=== PATIENT | female | born 1985 | race Caucasian/White ===

== ENCOUNTER → 2017-04-07 | Outpatient (CLI) | payer OTHER, MEDICARE ==
[~2017-04-07] MED LIST: CIMZ200K SC; CIMZ200K SQ; CYCL-36 PO; DIPH50TA PO; LANTUS2P SC; LEVEMIR SQ; LEVIMIR SQ; LORTA5 PO; METH250T PO; NOVALOG SQ; NOVOLOGP2 SQ; PRENATAL VITAMIN; VICT18IN
== END ==
LOC: HPND 08:55
PROVIDERS: ATTEND Obstetrics & Gynecology
DX: O99.612 Diseases of the digestive system complicating pregnancy, second trimester (principal); O24.414 Gestational diabetes mellitus in pregnancy, insulin controlled; O10.912 Unspecified pre-existing hypertension complicating pregnancy, second trimester; Z3A.00 Weeks of gestation of pregnancy not specified
CPT/HCPCS: 76811; 76817

== ENCOUNTER → 2017-05-12 | Outpatient (CLI) | payer OTHER, MEDICARE | LOC: HPND 08:58 | PROVIDERS: ATTEND Obstetrics & Gynecology | DX: O99.212 Obesity complicating pregnancy, second trimester (principal); Z68.38 Body mass index [BMI] 38.0-38.9, adult; O10.212 Pre-existing hypertensive chronic kidney disease complicating pregnancy, second trimester; O35.2XX0 Maternal care for (suspected) hereditary disease in fetus, not applicable or unspecified; O44.02 Complete placenta previa NOS or without hemorrhage, second trimester; O24.112 Pre-existing type 2 diabetes mellitus, in pregnancy, second trimester | CPT/HCPCS: 76816; 76825; 76827; 93325 ==

== ENCOUNTER 2017-05-17 17:01 | Emergency (ER) | payer OTHER, MEDICARE ==
[~2017-05-17] VITALS: Ht 160 cm; Wt 105.0 kg
[~2017-05-17 17:01] MED LIST changes: -CIMZ200K SQ; -LEVEMIR SQ; -LEVIMIR SQ; -METH250T PO; -NOVALOG SQ; -NOVOLOGP2 SQ; -PRENATAL VITAMIN
[2017-05-17 17:10] VITALS: BP 164/91; PULSE 110; RESP 16; TEMP 98.3; O2SAT 99
--- NOTE | 2017-05-17 17:47 | PD ---
HPI Chief Complaint: Injury Time Seen by Provider: 17:46 Travel History International Travel<30 days: No Contact w/Intl Traveler<30days: No Traveled to known affect area: No History of Present Illness HPI 32 year old female who is 24 weeks gestation presents to the ED for evaluation of right knee pain. Pt got up last night to vomit and while running to the bathroom ended up vomiting on the floor and slipped in it. She landed on her right knee and experienced immediate pain. She took tylenol initially. This did not help her pain. She took a tramadol that she is prescribed for arthritic pain and it took the edge off, but did not resolve her pain. Pain is on the anterior right knee; 8/10; does not radiate anywhere. Pain is exacerbated with ambulation, flexion, and palpation. Denies alterations in sensation; no other symptoms to report. Pt did not hit her abdomen. Denies any abdominal pain. No cramping. No vaginal discharge or bleeding. No complaints. PFSH Past Medical History Anxiety: Yes Diabetes: Yes (TYPE II) Gastrointestinal Disorders: Yes (crohns ) Hepatitis: No Hiatal Hernia: No Thyroid Disease: No ?: LMP: 24 WKS Past Surgical History Abdominal Surgery: Yes (bowel resection) Appendectomy: Yes Cholecystectomy: Yes Genitourinary Surgery: Yes (fistula repair x 4 ) Pacemaker: No Social History Alcohol Use: No Tobacco Use: No Substance Use: No Allergies-Medications (Allergen,Severity, Reaction): Coded Allergies: Sulfa (Sulfonamide Antibiotics) (Unverified Allergy, Severe, hives and shortness of breath, 05/17/17) mushroom (Unverified Allergy, Mild, gi upset, 05/17/17) diclofenac (Unverified Adverse Reaction, Mild, unknwon, 05/17/17) pt instructed not to take due to crohns. etodolac (Unverified Adverse Reaction, Mild, unknwon, 05/17/17) pt instructed not to take due to crohns. flurbiprofen (Unverified Adverse Reaction, Mild, unknwon, 05/17/17) pt instructed not to take due to crohns. ibuprofen (Unverified Adverse Reaction, Mild, unknwon, 05/17/17) pt instructed not to take due to crohns. indomethacin (Unverified Adverse Reaction, Mild, unknwon, 05/17/17) pt instructed not to take due to crohns. ketoprofen (Unverified Adverse Reaction, Mild, unknwon, 05/17/17) pt instructed not to take due to crohns. ketorolac (Unverified Adverse Reaction, Mild, unknwon, 05/17/17) pt instructed not to take due to crohns. naproxen (Unverified Adverse Reaction, Mild, unknwon, 05/17/17) pt instructed not to take due to crohns. oxaprozin (Unverified Adverse Reaction, Mild, unknwon, 05/17/17) pt instructed not to take due to crohns. Reported Meds & Prescriptions Reported Meds & Active Scripts Active Reported Methyldopa 250 Mg Tab 250 Mg PO TID [ Vitamin] [Novalog] 32 SQ DINNER [Novalog] 30 SQ 1200 [Novalog] 25 SQ AM [Levimir] 75 SQ QID Cimzia (2 syringe) Kit Inj (Certolizumab Pegol Inj) 400 Mg/2 Ml (200 Mg/Ml X 2) Kit 400 Mg SQ Q14D Administer 2 syringes (400 mg) to separate sites. Review of Systems Except as stated in HPI: all other systems reviewed are Neg Physical Exam Narrative GENERAL: Well nourished female patient ambulatory with an antalgic gait, in no acute distress SKIN: Warm and dry. Light ecchymosis on the anterior aspect of the right knee HEAD: Normocephalic. EYES: No scleral icterus. No injection or drainage. NECK: Supple, trachea midline. No JVD or lymphadenopathy. CARDIOVASCULAR: Regular rate and rhythm without murmurs, gallops, or rubs. RESPIRATORY: Breath sounds equal bilaterally. No accessory muscle use. GASTROINTESTINAL: Abdomen soft, non-tender, nondistended. MUSCULOSKELETAL: No cyanosis. Moderate anterior right knee swelling with associated light ecchymosis. Pt can fully flex and extend the affected knee. No laxity with valgus or varus stress. BACK: Nontender without obvious deformity. No CVA tenderness. Data Data Last Documented VS Vital Signs Date Time Temp Pulse Resp B/P (MAP) Pulse Ox O2 Delivery O2 Flow Rate FiO2 05/17/17 17:10 98.3 110 16 164/91 (115) 99 Orders Orders Knee, Complete (4vws) (05/17/17 ) Ice / Cold Pack PRN (05/17/17 18:01) Acetamin-Hydrocod 325-5 Mg ([place] 5-325 (05/17/17 18:15) Mike Bandage (05/17/17 18:19) MDM Medical Decision Making Medical Screen Exam Complete: Yes Emergency Medical Condition: Yes Medical Record Reviewed: Yes Differential Diagnosis contusion vs fracture vs sprain vs dislocation Narrative Course 32 year old female presents to the ED for evaluation of right knee pain. Pt does have moderate swelling on the anterior right knee with light ecchymosis. Pt is and reports pretty significant pain. She is given one lortab. Last Impressions Knee X-Ray 05/17/17 0000 Signed Impressions: Service Date/Time: Wednesday, May 17, 2017 17:48 - CONCLUSION: 1. Negative examination of the knee. Logan Santiago MD Results are discussed with the pt. Pt is counseled on care. Agrees to follow up with primary care provider. She agrees to return immediately with acute worsening of symptoms Diagnosis Primary Impression: Contusion of right knee Qualified Codes: S80.01XA - Contusion of right knee, initial encounter Referrals: Orthopaedic Surgeon Primary Care Physician Patient Instructions: Contusion in Adults (ED), General Instructions Additional Instructions: Ice and elevate to reduce pain and swelling Mike bandage for compression Follow up with your primary care provider Seek orthopedic evaluation Return immediately with any acute worsening of symptoms Med/Other Pt SpecificInfo: No Change to Meds Disposition: 01 DISCHARGE HOME Condition: Stable Cinthia Staples May 17, 2017 17:47
[2017-05-17] MEDS ORDERED: METH250T PO (17:55)
[2017-05-17] MEDS ORDERED: NOVALOG SQ ×3 (17:55)
[2017-05-17] MEDS ORDERED: LEVIMIR SQ (17:55)
[2017-05-17] MEDS ORDERED: PRENATAL VITAMIN (17:55)
[2017-05-17] MEDS ORDERED: CIMZ200K SQ (17:55)
[2017-05-17] MEDS ORDERED: ACETAMINOPHEN/HYDROcodone 325 MG/5 MG TAB PO ONE (18:15)
--- NOTE | 2017-05-17 18:16 | RADRPT ---
EXAM DATE/TIME: 05/17/2017 17:48 [facility] COMPARISON: No previous studies available for comparison. INDICATIONS : Right knee pain. MEDICAL HISTORY : None. SURGICAL HISTORY : None. ENCOUNTER: Initial ACUITY: 2 days PAIN SCORE: 6/10 LOCATION: Right knee. FINDINGS: Four view examination of the right knee demonstrates no evidence of fracture or dislocation. Bony mi neralization is normal. The articular surfaces are intact. The suprapatellar soft tissues have a no rmal configuration. CONCLUSION: 1. Negative examination of the knee. Logan Santiago MD on May 17, 2017 at 18:15 Board Certified Radiologist. This report was verified electronically.
[2017-05-18] MEDS ORDERED: LEVEMIR SQ (11:09)
[2017-05-18] MEDS ORDERED: NOVOLOGP2 SQ ×3 (11:09)
== END 2017-05-17 18:42 | disposition home or self-care (01) ==
LOC: PHED 17:01 → PHEFT 18:42
DX: O26.92 Pregnancy related conditions, unspecified, second trimester (principal); S80.01XA Contusion of right knee, initial encounter; O24.112 Pre-existing type 2 diabetes mellitus, in pregnancy, second trimester; E11.9 Type 2 diabetes mellitus without complications; Z79.4 Long term (current) use of insulin; Z3A.24 24 weeks gestation of pregnancy; W01.0XXA Fall on same level from slipping, tripping and stumbling without subsequent striking against object, initial encounter
CPT/HCPCS: 73564; 99283; E0113

== ENCOUNTER → 2017-06-09 | Outpatient (CLI) | payer OTHER, MEDICARE ==
[~2017-06-09] MED LIST changes: -CIMZ200K SC; +CIMZ200K SQ; -CYCL-36 PO; -DIPH50TA PO; -LANTUS2P SC; +LEVEMIR SQ; -LORTA5 PO; +METH250T PO; +NOVOLOGP2 SQ; +PRENATAL VITAMIN; -VICT18IN
== END ==
LOC: HPND 10:33
PROVIDERS: ATTEND Obstetrics & Gynecology
DX: O99.612 Diseases of the digestive system complicating pregnancy, second trimester (principal); K50.80 Crohn's disease of both small and large intestine without complications; O10.012 Pre-existing essential hypertension complicating pregnancy, second trimester; O24.112 Pre-existing type 2 diabetes mellitus, in pregnancy, second trimester; E66.09 Other obesity due to excess calories; O99.212 Obesity complicating pregnancy, second trimester; Z68.38 Body mass index [BMI] 38.0-38.9, adult
CPT/HCPCS: 76816

== ENCOUNTER 2017-06-17 18:25 | Emergency (ER) | payer OTHER, MEDICARE ==
--- NOTE | 2017-06-17 19:58 | PD ---
HPI Chief Complaint Elevated blood pressure in a patient with chronic hypertension Date Seen: Jun 17, 2017 Time Seen: 19:30 Travel History International Travel<30 Days: No Contact w/Intl Traveler<30Days: No Known Affected Area: No History of Present Illness HPI Patient is 32-year-old white female at [address] Salas for care and presents complaining of elevated blood pressures today and initial blood pressures when she was here was 160/88. Patient has chronic hypertension been on antihypertensives as before she was . The however in the last couple days she has not taken her Aldomet her only medication for blood pressure and just today The prescription filled and is taken 2 doses today. Weeks Gestation: 29 Para: 0 : 2 Miscarriage: 1 History Past Medical History Narrative Medical Chronic hypertension requiring medication[aldomet 500mg bid] IDDM on insulin now Obstetric History Obstetric History 1 early loss Social History Alcohol Use: No Tobacco Use: No Substance Abuse: No Allergies-Medications (Allergen,Severity, Reaction): Coded Allergies: Sulfa (Sulfonamide Antibiotics) (Unverified Allergy, Severe, hives and shortness of breath, 05/17/17) mushroom (Unverified Allergy, Mild, gi upset, 05/17/17) diclofenac (Unverified Adverse Reaction, Mild, unknwon, 05/17/17) pt instructed not to take due to crohns. etodolac (Unverified Adverse Reaction, Mild, unknwon, 05/17/17) pt instructed not to take due to crohns. flurbiprofen (Unverified Adverse Reaction, Mild, unknwon, 05/17/17) pt instructed not to take due to crohns. ibuprofen (Unverified Adverse Reaction, Mild, unknwon, 05/17/17) pt instructed not to take due to crohns. indomethacin (Unverified Adverse Reaction, Mild, unknwon, 05/17/17) pt instructed not to take due to crohns. ketoprofen (Unverified Adverse Reaction, Mild, unknwon, 05/17/17) pt instructed not to take due to crohns. ketorolac (Unverified Adverse Reaction, Mild, unknwon, 05/17/17) pt instructed not to take due to crohns. naproxen (Unverified Adverse Reaction, Mild, unknwon, 05/17/17) pt instructed not to take due to crohns. oxaprozin (Unverified Adverse Reaction, Mild, unknwon, 05/17/17) pt instructed not to take due to crohns. Home Meds Reported Medications Insulin Aspart Inj (Novolog Inj) 1,000 Unit/10 Ml Vial, 32 UNITS SQ DAILY WITH DINNER for Blood Sugar Management, #1 INJECTION 0 Refills 05/18/17 Insulin Aspart Inj (Novolog Inj) 1,000 Unit/10 Ml Vial, 30 UNITS SQ DAILY AT 12NOON for Blood Sugar Management, #1 INJECTION 0 Refills 05/18/17 Insulin Aspart Inj (Novolog Inj) 1,000 Unit/10 Ml Vial, 25 UNITS SQ DAILY IN THE AM for Blood Sugar Management, #1 INJECTION 0 Refills 05/18/17 Insulin Detemir Inj (Levemir Inj) 1,000 unit/ 10 ML Vial, 75 UNITS SQ QID for Blood Sugar Management, VIAL 0 Refills Do not mix with any other Insulin. 05/18/17 Methyldopa (Methyldopa) 250 Mg Tab, 250 MG PO TID for Blood Pressure Management , TAB 0 Refills 05/17/17 [ Vitamin] No Conflict Check 05/17/17 Certolizumab Pegol Inj (Cimzia (2 syringe) Kit Inj) 400 Mg/2 Ml (200 Mg/Ml X 2) Kit, 400 MG SQ Q14D, KIT Administer 2 syringes (400 mg) to separate sites. 05/17/17 Review of Systems General / Constitutional: No: Fever, Weight Gain, Chills, Other Eyes: No: Diploplia, Blurred Vision, Visual changes, Pain, Photophobia HENT: No: Headaches, Vertigo, Lightheadedness Cardiovascular: No: Irregular Rhythm, Chest Pain or Discomfort, Palpitations, Tachycardia, Syncope, Varicosities, Edema, Cyanosis Respiratory: No: Cough, Short of Breath, Other Gastrointestinal: Abdominal Pain, No: Nausea, Vomiting, Diarrhea Genitourinary: No: Decreased Urinary Output, Oliguria Musculoskeletal: No: Limited ROM, Weakness, Cramping, Edema, Pain Skin: No Rash, No Itching, No Dryness, No Lumps, No Change in Pigmentation, No Change in Nails, No Alopecia, No Lesions Neurologic: No: Weakness, Dizziness, Syncope, Focal Abnormalities, Coordination Problem, Headache, Slurred Speech, Seizures Psychiatric: No: Depression, Suicidal Ideations, Homicidal Ideation Endocrine: No: Heat Intolerance, Cold Intolerance, Polydipsia, Polyuria, Other Physical Exam Narrative GENERAL: Well-nourished, well-developed patient. SKIN: Warm and dry. HEAD: Normocephalic and atraumatic. EYES: No scleral icterus. No injection or drainage. ENT: No nasal drainage noted. Mucous membranes pink. Airway patent. NECK: Supple, trachea midline. No JVD. CARDIOVASCULAR: Regular rate and rhythm without murmurs, gallops, or rubs. RESPIRATORY: Breath sounds equal bilaterally. No accessory muscle use. BREASTS: Bilateral exam showed no masses , no retractions, no nipple discharge. ABDOMEN/GI: Abdomen soft, non-tender, bowel sounds present, no rebound, no guarding Gravid to [-29] weeks size Fundal Height: [29-] GENITOURINARY: External Genitalia: intact and normal in appearance BUS glands: [-] Cervix: [post-] Dilatation: [-0] Effacement: [0-] Station: [-3] Membranes: [intact ] Uterine Contractions: [none-] FHT's: Category: [1-] Baseline: [-133] Reactive: [-yes] Variability: [mod-] Decels: [-0] EXTREMITIES: No cyanosis or edema. BACK: Nontender without obvious deformity. No CVA tenderness. NEUROLOGICAL: Awake and alert. Motor and sensory grossly within normal limits. Five out of 5 muscle strength in all muscle groups. Normal speech. Data Data Orders Orders Cbc No Diff, Includes Plts (06/17/17 18:59) Comprehensive Metabolic Panel (06/17/17 18:59) Uric Acid (06/17/17 18:59) Urinalysis - C+S If Indicated (06/17/17 18:59) MDM Interpretation(s) Patient is 32-year-old white female at 29 weeks who is history chronic hypertension on Aldomet now 500 twice a day also history of insulin dependent diabetes and takes appearance on a regular basis. She presents baby because of elevated blood pressures [facility] the 160/88 Range Here on OB ED. Blood Pressures BEEN Lying down, Were in the 140 / 70s, [facility] lab WNL , K+ low --2.7 will replace with 20 meq K tab po bid Plan The patient to continue taking her oral antihypertensives, potassium is low will provide potassium tablet 20 meq twice a day along with vitamin Diagnosis Diagnosis: Primary Impression: Chronic hypertension during , antepartum Additional Impressions: Diabetes in Hypokalemia Disposition: 01 DISCHARGE HOME Condition: Stable Scripts Potassium Chloride ER (K-Tab) 20 Meq Tab 20 MEQ PO BID for Electrolyte Replacement, #60 TAB 0 Refills Prov: Dangelo Johnston II, MD 06/17/17 Dangelo Johnston II, MD Jun 17, 2017 19:58
[2017-06-17 20:18] LABS: HEMATOCRIT 29.2 % (35.0-46.0); MEAN CORPUSCULAR HEMOGLOBIN 28.1 PG (27.0-34.0); MEAN CORPUSCULAR HGB CONC 33.5 % (32.0-36.0); PLATELET COUNT 240 TH/MM3 (150-450); RED BLOOD COUNT 3.48 MIL/MM3 (4.00-5.30); RED CELL DISTRIBUTION WIDTH 14.4 % (11.6-17.2); REVIEW FLAG FINAL; WHITE BLOOD COUNT 7.4 TH/MM3 (4.0-11.0)
[2017-06-17 21:07] LABS: ALKALINE PHOSPHATASE 57 U/L (45-117); ALT (GPT) 15 U/L (10-53); ANION GAP 10 MEQ/L (5-15); AST (GOT) 10 U/L (15-37); BICARBONATE 24.1 MEQ/L (21.0-32.0); BLOOD UREA NITROGEN 4 MG/DL (7-18); CHLORIDE 103 MEQ/L (98-107); GLOMERULAR FILTRATION RATE 131 ML/MIN (>89); SODIUM (NA) 137 MEQ/L (136-145); TOTAL BILIRUBIN ADULT 0.3 MG/DL (0.2-1.0); URIC ACID 4.1 MG/DL (2.6-6.0)
[2017-06-17 21:09] LABS: POTASSIUM 2.7 MEQ/L (3.5-5.1)
[2017-06-17] MEDS ORDERED: POTA1TAB4 PO (21:30)
== END 2017-06-17 21:45 | disposition home or self-care (01) ==
LOC: HOBED 18:25
DX: O16.3 Unspecified maternal hypertension, third trimester (principal); O24.913 Unspecified diabetes mellitus in pregnancy, third trimester; E87.6 Hypokalemia; Z79.4 Long term (current) use of insulin; Z79.899 Other long term (current) drug therapy; Z88.2 Allergy status to sulfonamides; Z88.6 Allergy status to analgesic agent; Z3A.29 29 weeks gestation of pregnancy; Z88.8 Allergy status to other drugs, medicaments and biological substances
CPT/HCPCS: 80053; 84550; 85027; 99284

== ENCOUNTER 2017-07-29 09:34 | Emergency (ER) | payer OTHER, MEDICARE ==
[~2017-07-29 09:34] MED LIST changes: +POTA1TAB4 PO
--- NOTE | 2017-07-29 11:17 | PD ---
HPI Chief Complaint High blood pressure Date Seen: Jul 29, 2017 Time Seen: 11:11 Travel History International Travel<30 Days: No Contact w/Intl Traveler<30Days: No Known Affected Area: No History of Present Illness HPI Patient is 32-year-old white female at [address] Salas for care and was seen today in OB diagnostics for biophysical profile which was 8 of 8 with the NST being reactive now 10 of 10, however blood pressure in the back was 180/90 and 170/88, respirations on Aldomet 2 g a day and has just started on Procardia 30 mg XL her OB doctor. Because was blood pressure she was sent OB ED for lab work and evaluation. heart rate tracing is reactive and no contractions. Patient is a symptomatically otherwise she has no headache blurry vision spots in front of her eyes abdominal pain or swelling Weeks Gestation: 35 Para: 0 : 2 History Past Medical History Narrative Medical Chronic hypertension Obstetric History Obstetric History 1 early loss Social History Alcohol Use: No Tobacco Use: No Substance Abuse: No Allergies-Medications (Allergen,Severity, Reaction): Coded Allergies: Sulfa (Sulfonamide Antibiotics) (Unverified Allergy, Severe, hives and shortness of breath, 05/17/17) mushroom (Unverified Allergy, Mild, gi upset, 05/17/17) diclofenac (Unverified Adverse Reaction, Mild, unknwon, 05/17/17) pt instructed not to take due to crohns. etodolac (Unverified Adverse Reaction, Mild, unknwon, 05/17/17) pt instructed not to take due to crohns. flurbiprofen (Unverified Adverse Reaction, Mild, unknwon, 05/17/17) pt instructed not to take due to crohns. ibuprofen (Unverified Adverse Reaction, Mild, unknwon, 05/17/17) pt instructed not to take due to crohns. indomethacin (Unverified Adverse Reaction, Mild, unknwon, 05/17/17) pt instructed not to take due to crohns. ketoprofen (Unverified Adverse Reaction, Mild, unknwon, 05/17/17) pt instructed not to take due to crohns. ketorolac (Unverified Adverse Reaction, Mild, unknwon, 05/17/17) pt instructed not to take due to crohns. naproxen (Unverified Adverse Reaction, Mild, unknwon, 05/17/17) pt instructed not to take due to crohns. oxaprozin (Unverified Adverse Reaction, Mild, unknwon, 05/17/17) pt instructed not to take due to crohns. Home Meds Active Scripts Potassium Chloride ER (K-Tab) 20 Meq Tab, 20 MEQ PO BID for Electrolyte Replacement, #60 TAB 0 Refills Prov:Dangelo Johnston II, MD 06/17/17 Reported Medications Insulin Aspart Inj (Novolog Inj) 1,000 Unit/10 Ml Vial, 32 UNITS SQ DAILY WITH DINNER for Blood Sugar Management, #1 INJECTION 0 Refills 05/18/17 Insulin Aspart Inj (Novolog Inj) 1,000 Unit/10 Ml Vial, 30 UNITS SQ DAILY AT 12NOON for Blood Sugar Management, #1 INJECTION 0 Refills 05/18/17 Insulin Aspart Inj (Novolog Inj) 1,000 Unit/10 Ml Vial, 25 UNITS SQ DAILY IN THE AM for Blood Sugar Management, #1 INJECTION 0 Refills 05/18/17 Insulin Detemir Inj (Levemir Inj) 1,000 unit/ 10 ML Vial, 75 UNITS SQ QID for Blood Sugar Management, VIAL 0 Refills Do not mix with any other Insulin. 05/18/17 Methyldopa (Methyldopa) 250 Mg Tab, 250 MG PO TID for Blood Pressure Management , TAB 0 Refills 05/17/17 [ Vitamin] No Conflict Check 05/17/17 Certolizumab Pegol Inj (Cimzia (2 syringe) Kit Inj) 400 Mg/2 Ml (200 Mg/Ml X 2) Kit, 400 MG SQ Q14D, KIT Administer 2 syringes (400 mg) to separate sites. 05/17/17 Review of Systems General / Constitutional: No: Fever, Weight Gain, Chills, Other Eyes: No: Diploplia, Blurred Vision, Visual changes, Pain, Photophobia HENT: No: Headaches, Vertigo, Lightheadedness Cardiovascular: No: Irregular Rhythm, Chest Pain or Discomfort, Palpitations, Tachycardia, Syncope, Varicosities, Edema, Cyanosis Respiratory: No: Cough, Short of Breath, Other Gastrointestinal: No: Nausea, Vomiting, Diarrhea Genitourinary: No: Decreased Urinary Output, Oliguria Musculoskeletal: No: Limited ROM, Weakness, Cramping, Edema, Pain Skin: No Rash, No Itching, No Dryness, No Lumps, No Change in Pigmentation, No Change in Nails, No Alopecia, No Lesions Neurologic: No: Weakness, Dizziness, Syncope, Focal Abnormalities, Coordination Problem, Headache, Slurred Speech, Seizures Psychiatric: No: Depression, Suicidal Ideations, Homicidal Ideation Endocrine: No: Heat Intolerance, Cold Intolerance, Polydipsia, Polyuria, Other Physical Exam Narrative GENERAL: Well-nourished, well-developed patient. SKIN: Warm and dry. HEAD: Normocephalic and atraumatic. EYES: No scleral icterus. No injection or drainage. ENT: No nasal drainage noted. Mucous membranes pink. Airway patent. NECK: Supple, trachea midline. No JVD. CARDIOVASCULAR: Regular rate and rhythm without murmurs, gallops, or rubs. RESPIRATORY: Breath sounds equal bilaterally. No accessory muscle use. BREASTS: Bilateral exam showed no masses , no retractions, no nipple discharge. ABDOMEN/GI: Abdomen soft, non-tender, bowel sounds present, no rebound, no guarding Gravid to [-35] weeks size Fundal Height: [35-] GENITOURINARY: Membranes: [intact ] Uterine Contractions: [none-] FHT's: Category: [1-] Baseline: [-133] Reactive: [-yes] Variability: [-mod] Decels: [-0] EXTREMITIES: No cyanosis or edema. BACK: Nontender without obvious deformity. No CVA tenderness. NEUROLOGICAL: Awake and alert. Motor and sensory grossly within normal limits. Five out of 5 muscle strength in all muscle groups. Normal speech. Data Data Orders Orders Cbc No Diff, Includes Plts (07/29/17 10:11) Comprehensive Metabolic Panel (07/29/17 10:11) Uric Acid (07/29/17 10:11) Urinalysis - C+S If Indicated (07/29/17 10:11) Labs Biophysical profile done in OB diagnostics was 8 of 8 on ultrasound with the added reactive NST now 10 of 10 [facility] lab WNL , UA trace protein MDM Interpretation(s) Patient is 32-year-old white female at 35 weeks who presents referred from OB diagnostics for elevated blood pressures. They out of 180/90 and 170/ 90 and she was sent OB diagnostics. Blood pressures here been are more normal [id number] 80s 155/90 and 161/99 , [facility] lab within normal limits UA trace protein Plan D/C home to bedrest as much as possible Diagnosis Diagnosis: Primary Impression: Hypertension affecting in third trimester Additional Impression: 35 weeks gestation of Disposition: 01 DISCHARGE HOME Condition: Stable Dangelo Johnston II, MD Jul 29, 2017 11:17
[2017-07-29 11:47] LABS: BILIRUBIN, URINE NEG (NEG); BLOOD, URINE NEG (NEG); GLUCOSE,URINE NEG (NEG); HYALINE CAST, URINE 1 /lpf (RARE); KETONE, URINE NEG (NEG); MUCUS URINE FEW /lpf (OCC); NITRITE,URINE NEG (NEG); PH, URINE 5.5 (5.0-8.5); SQUAMOUS EPITHELIAL CELL URINE 11 /hpf (0-5); TRANSITIONAL EPI CELLS, URINE 1 /hpf; URINE COLOR YELLOW (YELLW/STRAW); URINE LEUKOCYTE ESTERASE NEG (NEG)
[2017-07-29 11:55] LABS: HEMATOCRIT 31.1 % (35.0-46.0); HEMOGLOBIN 10.5 GM/DL (11.6-15.3); MEAN CELL VOLUME 85.4 FL (80.0-100.0); MEAN CORPUSCULAR HEMOGLOBIN 28.9 PG (27.0-34.0); MEAN CORPUSCULAR HGB CONC 33.8 % (32.0-36.0); MEAN PLATELET VOLUME 8.2 FL (7.0-11.0); PLATELET COUNT 193 TH/MM3 (150-450); RED BLOOD COUNT 3.65 MIL/MM3 (4.00-5.30); RED CELL DISTRIBUTION WIDTH 16.4 % (11.6-17.2)
[2017-07-29 11:56] LABS: ALBUMIN 2.3 GM/DL (3.4-5.0); AST (GOT) 14 U/L (15-37); BICARBONATE 21.4 MEQ/L (21.0-32.0); BLOOD UREA NITROGEN 9 MG/DL (7-18); CALCIUM 8.8 MG/DL (8.5-10.1); CHLORIDE 108 MEQ/L (98-107); CREATININE 0.52 MG/DL (0.50-1.00); GLOMERULAR FILTRATION RATE 137 ML/MIN (>89); GLUCOSE,RANDOM 106 MG/DL (74-106); SODIUM (NA) 139 MEQ/L (136-145)
[2017-07-29 12:00] LABS: ALKALINE PHOSPHATASE 70 U/L (45-117); ALT (GPT) 15 U/L (10-53); TOTAL BILIRUBIN ADULT 0.5 MG/DL (0.2-1.0); TOTAL PROTEIN 6.5 GM/DL (6.4-8.2)
== END 2017-07-29 13:53 | disposition home or self-care (01) ==
LOC: HOBED 09:34
DX: O16.3 Unspecified maternal hypertension, third trimester (principal); Z3A.35 35 weeks gestation of pregnancy; Z88.2 Allergy status to sulfonamides; Z88.8 Allergy status to other drugs, medicaments and biological substances; Z79.4 Long term (current) use of insulin; Z79.899 Other long term (current) drug therapy
CPT/HCPCS: 36415; 59025; 80053; 81001; 84550; 85027

== ENCOUNTER 2017-08-08 19:37 | Emergency (ER) | payer OTHER, MEDICARE ==
[2017-08-08] VITALS (24 sets, daily range): BP systolic 139–170; BP diastolic 80–97; PULSE 115–132; RESP 18–20
[2017-08-08] MEDS ORDERED: NIFEdipine 10 MG CAP ONE (20:26)
--- NOTE | 2017-08-08 20:58 | PD ---
HPI Chief Complaint High blood pressure Date Seen: Aug 08, 2017 Time Seen: 20:45 Travel History International Travel<30 Days: No Contact w/Intl Traveler<30Days: No Known Affected Area: No History of Present Illness HPI Patient is 32-year-old white female at [address] Salas'pierre who has a history of chronic hypertension and is been on Aldomet since first trimester. Currently now on 2 g of Aldomet a day and Procardia XL 30 mg daily, and today she noticed a blood pressure 170/109 and wanted to come in to make sure the baby was okay. She states that usually her blood pressure was 160 over 80s but occasionally will go up to 170/100 and that is why they have slowly increased her Aldomet dose and added Procardia. She does complain of increase in swelling in her hands and feet, but no headache or visual changes or abdominal pain. Here on OB ED her blood pressure is 169/109, and 177/105, she was given Procardia 10 mg now in VICTOR M Weeks Gestation: 36 Para: 0 : 2 Miscarriage: 1 History Past Medical History Narrative Medical Patient is as insulin dependent diabetic and is had normal blood sugars throughout She has a history of Crohn's disease and has had multiple bowel resections and abdominal surgeries , a gastric bypass, History of a MRSA infection History of chronic hypertension on medications prior to Obstetric History Obstetric History 1 early loss , this they plan to do a for delivery delivered to her history of multiple bowel resections she's had rectal surgery as well. Past Surgical History Narrative Surgical Bowel resections, gastric bypass Social History Alcohol Use: No Tobacco Use: No Substance Abuse: No Allergies-Medications (Allergen,Severity, Reaction): Coded Allergies: Sulfa (Sulfonamide Antibiotics) (Unverified Allergy, Severe, hives and shortness of breath, 05/17/17) mushroom (Unverified Allergy, Mild, gi upset, 05/17/17) diclofenac (Unverified Adverse Reaction, Mild, unknwon, 05/17/17) pt instructed not to take due to crohns. etodolac (Unverified Adverse Reaction, Mild, unknwon, 05/17/17) pt instructed not to take due to crohns. flurbiprofen (Unverified Adverse Reaction, Mild, unknwon, 05/17/17) pt instructed not to take due to crohns. ibuprofen (Unverified Adverse Reaction, Mild, unknwon, 05/17/17) pt instructed not to take due to crohns. indomethacin (Unverified Adverse Reaction, Mild, unknwon, 05/17/17) pt instructed not to take due to crohns. ketoprofen (Unverified Adverse Reaction, Mild, unknwon, 05/17/17) pt instructed not to take due to crohns. ketorolac (Unverified Adverse Reaction, Mild, unknwon, 05/17/17) pt instructed not to take due to crohns. naproxen (Unverified Adverse Reaction, Mild, unknwon, 05/17/17) pt instructed not to take due to crohns. oxaprozin (Unverified Adverse Reaction, Mild, unknwon, 05/17/17) pt instructed not to take due to crohns. Home Meds Active Scripts Potassium Chloride ER (K-Tab) 20 Meq Tab, 20 MEQ PO BID for Electrolyte Replacement, #60 TAB 0 Refills Prov:Dangelo Johnston II, MD 06/17/17 Reported Medications Insulin Aspart Inj (Novolog Inj) 1,000 Unit/10 Ml Vial, 32 UNITS SQ DAILY WITH DINNER for Blood Sugar Management, #1 INJECTION 0 Refills 05/18/17 Insulin Aspart Inj (Novolog Inj) 1,000 Unit/10 Ml Vial, 30 UNITS SQ DAILY AT 12NOON for Blood Sugar Management, #1 INJECTION 0 Refills 05/18/17 Insulin Aspart Inj (Novolog Inj) 1,000 Unit/10 Ml Vial, 25 UNITS SQ DAILY IN THE AM for Blood Sugar Management, #1 INJECTION 0 Refills 05/18/17 Insulin Detemir Inj (Levemir Inj) 1,000 unit/ 10 ML Vial, 75 UNITS SQ QID for Blood Sugar Management, VIAL 0 Refills Do not mix with any other Insulin. 05/18/17 Methyldopa (Methyldopa) 250 Mg Tab, 250 MG PO TID for Blood Pressure Management , TAB 0 Refills 05/17/17 [ Vitamin] No Conflict Check 05/17/17 Certolizumab Pegol Inj (Cimzia (2 syringe) Kit Inj) 400 Mg/2 Ml (200 Mg/Ml X 2) Kit, 400 MG SQ Q14D, KIT Administer 2 syringes (400 mg) to separate sites. 05/17/17 Review of Systems General / Constitutional: No: Fever, Weight Gain, Chills, Other Eyes: No: Diploplia, Blurred Vision, Visual changes, Pain, Photophobia HENT: No: Headaches, Vertigo, Lightheadedness Cardiovascular: No: Irregular Rhythm, Chest Pain or Discomfort, Palpitations, Tachycardia, Syncope, Varicosities, Edema, Cyanosis Respiratory: No: Cough, Short of Breath, Other Gastrointestinal: No: Nausea, Vomiting, Diarrhea Genitourinary: No: Decreased Urinary Output, Oliguria Musculoskeletal: No: Limited ROM, Weakness, Cramping, Edema, Pain Skin: No Rash, No Itching, No Dryness, No Lumps, No Change in Pigmentation, No Change in Nails, No Alopecia, No Lesions Neurologic: No: Weakness, Dizziness, Syncope, Focal Abnormalities, Coordination Problem, Headache, Slurred Speech, Seizures Psychiatric: No: Depression, Suicidal Ideations, Homicidal Ideation Endocrine: No: Heat Intolerance, Cold Intolerance, Polydipsia, Polyuria, Other Physical Exam Narrative GENERAL: Well-nourished, obese patient. SKIN: Warm and dry. HEAD: Normocephalic and atraumatic. EYES: No scleral icterus. No injection or drainage. ENT: No nasal drainage noted. Mucous membranes pink. Airway patent. NECK: Supple, trachea midline. No JVD. CARDIOVASCULAR: Regular rate and rhythm without murmurs, gallops, or rubs. RESPIRATORY: Breath sounds equal bilaterally. No accessory muscle use. BREASTS: Bilateral exam showed no masses , no retractions, no nipple discharge. ABDOMEN/GI: Abdomen soft, non-tender, bowel sounds present, no rebound, no guarding Gravid to [36-] weeks size Fundal Height: [40-] GENITOURINARY: Membranes: [intact ] Uterine Contractions: [-none] FHT's: Category: [-1] Baseline: [-133] Reactive: [yes-] Variability: [mod-] Decels: [none-] EXTREMITIES: No cyanosis, 3+ pitting edema. BACK: Nontender without obvious deformity. No CVA tenderness. NEUROLOGICAL: Awake and alert. Motor and sensory grossly within normal limits. Five out of 5 muscle strength in all muscle groups. Normal speech.DTRs 1+ Data Data Orders Orders Nifedipine (Procardia) (08/08/17 20:26) Vital Signs (Adult) .ON ADMISSION (08/08/17 20:29) ^ Labor Status (08/08/17 20:29) Urinalysis - C+S If Indicated (08/08/17 20:29) ^ Non Stress Test (08/08/17 20:29) Cbc No Diff, Includes Plts (08/08/17 20:29) Comprehensive Metabolic Panel (08/08/17 20:29) Uric Acid (08/08/17 20:29) MDM Interpretation(s) Patient is 32-year-old white female at 36 weeks and his history of chronic hypertension and IDDM and was followed Dr. Salas for care. She presents with elevated blood pressures in the 160-170/100-110 range. This ranges a little high for she usually runs. She is felt to be at bedrest as part of her therapy but being close to the holidays she's been up and down a lot , her blood sugar has been within normal limits. Controlled on her insulin, blood pressure medications included 2 g of Aldomet a day and Procardia XL 30 mg here on OB ED her blood pressure was 169/109 so she was given Procardia 10 mg by mouth per our protocol. PIH labs drawn tonight and are normal, urinalysis dipstick shows trace to 1+ protein,. pressures improved with the 10 mg of Procardia Plan Plan to discharge the patient home to bedrest, continuation of her medications, low salt diet as well as carbohydrate controlled diet Diagnosis Diagnosis: Primary Impression: Chronic hypertension affecting Additional Impressions: Diabetes mellitus affecting 36 weeks gestation of Disposition: DISCHARGE HOME Condition: Stable Dangelo Johnston II, MD Aug 08, 2017 20:58
[2017-08-08 21:14] LABS: HEMATOCRIT 31.1 % (35.0-46.0); HEMOGLOBIN 10.9 GM/DL (11.6-15.3); MEAN CELL VOLUME 85.6 FL (80.0-100.0); MEAN PLATELET VOLUME 8.6 FL (7.0-11.0); PLATELET COUNT 215 TH/MM3 (150-450); RED BLOOD COUNT 3.64 MIL/MM3 (4.00-5.30); RED CELL DISTRIBUTION WIDTH 16.3 % (11.6-17.2); WHITE BLOOD COUNT 8.3 TH/MM3 (4.0-11.0)
[2017-08-08 21:26] LABS: BILIRUBIN, URINE NEG (NEG); BLOOD, URINE NEG (NEG); GLUCOSE,URINE NEG (NEG); KETONE, URINE NEG (NEG); MUCUS URINE FEW /lpf (OCC); NITRITE,URINE NEG (NEG); SQUAMOUS EPITHELIAL CELL URINE 12 /hpf (0-5); URINE COLOR YELLOW (YELLW/STRAW); URINE LEUKOCYTE ESTERASE NEG (NEG)
[2017-08-08 21:31] LABS: ALBUMIN 2.3 GM/DL (3.4-5.0); ALT (GPT) 14 U/L (10-53); AST (GOT) 12 U/L (15-37); BICARBONATE 23.4 MEQ/L (21.0-32.0); BLOOD UREA NITROGEN 8 MG/DL (7-18); CALCIUM 8.5 MG/DL (8.5-10.1); CHLORIDE 107 MEQ/L (98-107); CREATININE 0.53 MG/DL (0.50-1.00); GLOMERULAR FILTRATION RATE 134 ML/MIN (>89); GLUCOSE,RANDOM 63 MG/DL (74-106); SODIUM (NA) 140 MEQ/L (136-145)
[2017-08-08 21:34] LABS: ALKALINE PHOSPHATASE 88 U/L (45-117); TOTAL BILIRUBIN ADULT 0.5 MG/DL (0.2-1.0); TOTAL PROTEIN 6.7 GM/DL (6.4-8.2)
== END 2017-08-08 23:00 | disposition home or self-care (01) ==
LOC: HOBED 19:37
DX: O16.3 Unspecified maternal hypertension, third trimester (principal); O24.913 Unspecified diabetes mellitus in pregnancy, third trimester; M79.89 Other specified soft tissue disorders; O99.613 Diseases of the digestive system complicating pregnancy, third trimester; Z3A.36 36 weeks gestation of pregnancy; Z79.4 Long term (current) use of insulin; Z79.899 Other long term (current) drug therapy
CPT/HCPCS: 59025; 80053; 81001; 84550; 85027

== ENCOUNTER 2017-08-09 20:17 | Inpatient (IN) | payer OTHER, MEDICARE ==
[~2017-08-09] VITALS: Ht 160 cm; Wt 114.0 kg
[2017-08-09 21:30] VITALS: RESP 18
--- NOTE | 2017-08-09 21:42 | PD ---
HPI Chief Complaint ROM Date Seen: Aug 09, 2017 Time Seen: 21:31 Travel History International Travel<30 Days: No Contact w/Intl Traveler<30Days: No Known Affected Area: No History of Present Illness HPI Pt is a 32y/o @ 36.4wks. She has PNC with Dr. Salas. She presents with c/o LOF at 7:30pm. Her is complicated by DM, cHTN, Chron's, migraines, and anxiety. She was for a scheduled 1'CS given an extensive h/o bowel/rectal surgery. She last had PO intake at 6pm. Weeks Gestation: 36 Para: 0 : 2 History Past Medical History Narrative Medical DM cHTN Chron's migraines anxiety Obstetric History Obstetric History SAB x1 current Past Surgical History Narrative Surgical - bowel resections/rectal vaginal fistula repairs - appendectomy - cholecystectomy - wisdom teeth extraction Family History Family History: Negative Social History Alcohol Use: No Tobacco Use: No Substance Abuse: No Allergies-Medications (Allergen,Severity, Reaction): Coded Allergies: Sulfa (Sulfonamide Antibiotics) (Unverified Allergy, Severe, hives and shortness of breath, 05/17/17) mushroom (Unverified Allergy, Mild, gi upset, 05/17/17) diclofenac (Unverified Adverse Reaction, Mild, unknwon, 05/17/17) pt instructed not to take due to crohns. etodolac (Unverified Adverse Reaction, Mild, unknwon, 05/17/17) pt instructed not to take due to crohns. flurbiprofen (Unverified Adverse Reaction, Mild, unknwon, 05/17/17) pt instructed not to take due to crohns. ibuprofen (Unverified Adverse Reaction, Mild, unknwon, 05/17/17) pt instructed not to take due to crohns. indomethacin (Unverified Adverse Reaction, Mild, unknwon, 05/17/17) pt instructed not to take due to crohns. ketoprofen (Unverified Adverse Reaction, Mild, unknwon, 05/17/17) pt instructed not to take due to crohns. ketorolac (Unverified Adverse Reaction, Mild, unknwon, 05/17/17) pt instructed not to take due to crohns. naproxen (Unverified Adverse Reaction, Mild, unknwon, 05/17/17) pt instructed not to take due to crohns. oxaprozin (Unverified Adverse Reaction, Mild, unknwon, 05/17/17) pt instructed not to take due to crohns. Home Meds Active Scripts Potassium Chloride ER (K-Tab) 20 Meq Tab, 20 MEQ PO BID for Electrolyte Replacement, #60 TAB 0 Refills Prov:Dangelo Johnston II, MD 06/17/17 Reported Medications Insulin Aspart Inj (Novolog Inj) 1,000 Unit/10 Ml Vial, 32 UNITS SQ DAILY WITH DINNER for Blood Sugar Management, #1 INJECTION 0 Refills 05/18/17 Insulin Aspart Inj (Novolog Inj) 1,000 Unit/10 Ml Vial, 30 UNITS SQ DAILY AT 12NOON for Blood Sugar Management, #1 INJECTION 0 Refills 05/18/17 Insulin Aspart Inj (Novolog Inj) 1,000 Unit/10 Ml Vial, 25 UNITS SQ DAILY IN THE AM for Blood Sugar Management, #1 INJECTION 0 Refills 05/18/17 Insulin Detemir Inj (Levemir Inj) 1,000 unit/ 10 ML Vial, 75 UNITS SQ QID for Blood Sugar Management, VIAL 0 Refills Do not mix with any other Insulin. 05/18/17 Methyldopa (Methyldopa) 250 Mg Tab, 250 MG PO TID for Blood Pressure Management , TAB 0 Refills 05/17/17 [ Vitamin] No Conflict Check 05/17/17 Certolizumab Pegol Inj (Cimzia (2 syringe) Kit Inj) 400 Mg/2 Ml (200 Mg/Ml X 2) Kit, 400 MG SQ Q14D, KIT Administer 2 syringes (400 mg) to separate sites. 05/17/17 Review of Systems Except as stated in HPI: all other systems reviewed are Neg Physical Exam Narrative General: well developed, well nourished, no acute distress HEENT: normocephalic atraumatic, extraocular movements intact, neck supple Abdomen: soft, gravid, nontender, nondistended Uterus: fundus term Extremities: full range of motion Skin: normal coloration, no rashes, no suspicious skin lesions noted Neurologic: cranial nerves 2-12 grossly intact, normal muscle tone, normal gait Psychiatric: normal mood and affect, appropriate FHTs: 150s, +accels, no decels, moderate variability, reactive [place]: occasional ctx Data Data Vital Signs Reviewed: Yes Orders Orders Vital Signs (Adult) .ON ADMISSION (08/09/17 21:30) ^ Labor Status (08/09/17 21:30) ^ Non Stress Test (08/09/17 21:30) Pamg-1 Test .ONCE (08/09/17 21:30) Group B Strep: Negative MDM Plan 32y/o @ 36.4wks with DM, cHTN, Crohn's, PPROM. -- plan has been for 1' CS given extensive bowel/abdominal sx -- amnisure positive Dispo: Dr. Michaels (boiler control technician) notified of pt status. She will assume care of the pt. Diagnosis Diagnosis: Primary Impression: 36 weeks gestation of Additional Impressions: premature rupture of membranes (PPROM) with unknown onset of labor Diabetes mellitus affecting in third trimester Chronic hypertension affecting Crohn disease Anxiety Migraines Jaleesa Brandt MD Aug 09, 2017 21:42
[2017-08-09 22:00] VITALS: RESP 18
[2017-08-09] MEDS ORDERED: MAGNESIUM CITRATE SOLN 300 ML BTL PO ONE (22:15)
[2017-08-09] MEDS ORDERED: LACTATED RINGER'S 1000 ML IV SCH (22:15)
[2017-08-09] MEDS ORDERED: LACTATED RINGER'S 1000 ML IV ONE (22:15)
[2017-08-09] MEDS ORDERED: CITRIC ACID-SODIUM CITRATE LIQ 30 ML UDC PO SCH (22:15)
[2017-08-09] MEDS ORDERED: ceFAZolin 2 GM PREMIX 50 ML IV SCH (22:15)
[2017-08-09 22:39] LABS: BILIRUBIN, URINE NEG (NEG); BLOOD, URINE NEG (NEG); GLUCOSE,URINE NEG (NEG); KETONE, URINE NEG (NEG); MUCUS URINE FEW /lpf (OCC); NITRITE,URINE NEG (NEG); SQUAMOUS EPITHELIAL CELL URINE 6 /hpf (0-5); URINE COLOR YELLOW (YELLW/STRAW); URINE LEUKOCYTE ESTERASE NEG (NEG)
[2017-08-09 22:43] LABS: AUTOMATED NEUTROPHIL # 7.1 TH/MM3 (1.8-7.7); BASOPHIL % 0.1 % (0.0-2.0); EOSINOPHIL # 0.1 TH/MM3 (0-0.4); EOSINOPHIL % 0.7 % (0.0-4.0); HEMATOCRIT 33.4 % (35.0-46.0); HEMOGLOBIN 11.4 GM/DL (11.6-15.3); LYMPH % 15.4 % (9.0-44.0); LYMPHOCYTE # 1.4 TH/MM3 (1.0-4.8); MEAN CELL VOLUME 85.2 FL (80.0-100.0); MEAN CORPUSCULAR HEMOGLOBIN 29.1 PG (27.0-34.0); MEAN CORPUSCULAR HGB CONC 34.1 % (32.0-36.0); MEAN PLATELET VOLUME 8.3 FL (7.0-11.0); MONO % 6.8 % (0.0-8.0); MONOCYTE # 0.6 TH/MM3 (0-0.9); PLATELET COUNT 219 TH/MM3 (150-450); RED BLOOD COUNT 3.92 MIL/MM3 (4.00-5.30); RED CELL DISTRIBUTION WIDTH 16.2 % (11.6-17.2); WHITE BLOOD COUNT 9.2 TH/MM3 (4.0-11.0)
[2017-08-09 22:58] LABS: ALBUMIN 2.4 GM/DL (3.4-5.0); DIRECT BILIRUBIN ADULT 0.1 MG/DL (0.0-0.2)
[2017-08-09 23:00] LABS: INDIRECT BILIRUBIN 0.3 MG/DL (0.0-0.8); TOTAL BILIRUBIN ADULT 0.4 MG/DL (0.2-1.0)
[2017-08-09] MEDS ORDERED: METHYLDOPA 500 MG TAB PO ONE (23:00)
[2017-08-09] MEDS ORDERED: INSULIN DETEMIR 100 UNITS/ML VIAL SQ ONE (23:00)
[2017-08-09 23:19] VITALS: BP 168/92; PULSE 108
[2017-08-09 23:30] VITALS: RESP 18
[2017-08-10] VITALS (22 sets, daily range): BP systolic 110–163; BP diastolic 56–92; PULSE 102–135; RESP 14–20; TEMP 97.1–100.2; O2SAT 94–99
[2017-08-10] MEDS ORDERED: ONDANSETRON HCL 4 MG/2 ML VIAL IV PUSH PRN ×2 (00:15→13:45)
[2017-08-10] MEDS ORDERED: PRENTAB7 (01:07)
[2017-08-10] MEDS ORDERED: METH500T PO (01:07)
[2017-08-10] MEDS ORDERED: LEVEMIR SQ (01:07)
[2017-08-10] MEDS ORDERED: NIFE1TAB85 PO (01:07)
[2017-08-10] MEDS ORDERED: NOVOLOGP2 SQ ×3 (01:07)
[2017-08-10] MEDS ORDERED: PROMETHAZINE INJ 25 MG/ML VIAL IM ONE (03:30)
[2017-08-10] MEDS ORDERED: METHYLDOPA 500 MG TAB PO SCH (09:00)
[2017-08-10] MEDS ORDERED: NIFEdipine 30 MG SUSTAINED RELEASE TAB PO SCH (09:00)
[2017-08-10] MEDS ORDERED: ceFAZolin 2 GM PREMIX 50 ML IV SCH (09:00)
[2017-08-10 09:05] LABS: ALBUMIN 2.4 GM/DL (3.4-5.0); AST (GOT) 13 U/L (15-37); BICARBONATE 18.6 MEQ/L (21.0-32.0); BLOOD UREA NITROGEN 13 MG/DL (7-18); CALCIUM 9.1 MG/DL (8.5-10.1); CHLORIDE 107 MEQ/L (98-107); CREATININE 0.56 MG/DL (0.50-1.00); GLOMERULAR FILTRATION RATE 125 ML/MIN (>89); GLUCOSE,RANDOM 70 MG/DL (74-106); SODIUM (NA) 139 MEQ/L (136-145)
[2017-08-10 09:06] LABS: ALT (GPT) 14 U/L (10-53)
[2017-08-10 09:08] LABS: ALKALINE PHOSPHATASE 91 U/L (45-117); TOTAL BILIRUBIN ADULT 0.4 MG/DL (0.2-1.0)
[2017-08-10] MEDS ORDERED: MIDAZOLAM HCL 2 MG/2 ML VIAL ONE ×2 (11:38→15:45)
[2017-08-10] MEDS ORDERED: MORPHINE SULFATE PF 5 MG/10 ML VIAL ONE (11:38)
[2017-08-10] MEDS ORDERED: ACETAMINOPHEN 1000 MG/100 ML 100 ML IV ONE (11:38)
[2017-08-10] MEDS ORDERED: OXYTOCIN 10 UNIT/ML AMP IV ONE (12:00)
[2017-08-10] MEDS ORDERED: PHENYLEPH/NS 1000 MCG/10 ML SYR IV ONE ×2 (12:00)
[2017-08-10] MEDS ORDERED: DEXAMETHASONE SOD PHOS 4 MG/ML VIAL IV ONE (12:00)
[2017-08-10] MEDS ORDERED: SUCCINYLCHOLINE CHLORIDE 100 MG/5 ML SYRINGE IV PUSH ONE (12:00)
[2017-08-10] MEDS ORDERED: ceFAZolin INJ 1,000 MG VIAL IV ONE ×2 (12:00)
[2017-08-10] MEDS ORDERED: ONDANSETRON HCL 4 MG/2 ML VIAL IV ONE (12:00)
[2017-08-10] MEDS ORDERED: PROPOFOL 200 MG/20 ML AMP IV ONE ×2 (12:00)
[2017-08-10] MEDS ORDERED: LACTATED RINGER'S 1000 ML INJ 2,000 ML IV ONE (12:00)
[2017-08-10] MEDS ORDERED: LACTATED RINGER'S 1000 ML INJ 1,000 ML IV ONE (12:00)
[2017-08-10] MEDS ORDERED: ePHEDrine/NS 25 MG/5 ML SYRINGE IV ONE (12:00)
[2017-08-10] MEDS ORDERED: LIDOCAINE HCL 1% PF 5 ML SYRINGE OTHER ONE (12:00)
[2017-08-10] MEDS ORDERED: EPIDURAL-NO SYSTEMIC NARCOTICS PRN (12:25)
[2017-08-10] MEDS ORDERED: ZOLPIDEM TARTRATE 5 MG TAB PO PRN (13:45)
[2017-08-10] MEDS ORDERED: SIMETHICONE 80 MG CHEWABLE TAB PO PRN (13:45)
[2017-08-10] MEDS ORDERED: ACETAMINOPHEN/HYDROcodone 325 MG/7.5 MG TAB PO PRN (13:45)
[2017-08-10] MEDS ORDERED: KETOROLAC TROMETHAMINE 60 MG/2 ML (IM) VIAL IM PRN (13:45)
[2017-08-10] MEDS ORDERED: GLUCAGON 1 MG/ML VIAL OTHER PRN (13:45)
[2017-08-10] MEDS ORDERED: DEXTROSE 50% IN WATER 50 ML VIAL(D50) IV PUSH PRN (13:45)
[2017-08-10] MEDS ORDERED: OXYTOCIN 30 UNITS-500ML PREMIX 500 ML IV ONE (13:45)
[2017-08-10] MEDS ORDERED: SODIUM CHLORIDE 0.9% FLUSH 10 ML FLUSH IV FLUSH PRN (13:45)
[2017-08-10] MEDS ORDERED: OXYTOCIN 30 UNITS-500ML PREMIX 500 ML ONE (14:54)
[2017-08-10] MEDS ORDERED: EPIDURAL-DO NOT ADMINISTER ANTICOAGULANTS PRN (15:00)
[2017-08-10] MEDS ORDERED: EPIDURAL-DIPHENHYDRAMINE HCL 50 MG CAP PO PRN (15:00)
[2017-08-10] MEDS ORDERED: EPIDURAL-DIPHENHYDRAMINE HCL 50 MG/ML VIAL IV PUSH PRN (15:00)
[2017-08-10] MEDS ORDERED: MORPHINE SULFATE 2 MG/ML INJ IV ONE (15:00)
[2017-08-10] MEDS ORDERED: EPIDURAL-NALOXONE HCL 0.4 MG/ML AMP IV PUSH PRN (15:00)
[2017-08-10] MEDS ORDERED: CLINDAMYCIN INJ 600 MG in SODIUM CHLORIDE 0.9% INJ 100 ML IV SCH (15:00)
[2017-08-10] MEDS ORDERED: MORPHINE SULFATE 2 MG/ML INJ IV PRN (15:15)
--- NOTE | 2017-08-10 15:25 | MP ---
cc: TARA ANGUIANO DATE OF SURGERY: 08/10/2017 PREOPERATIVE DIAGNOSIS Intrauterine at 36 weeks, spontaneous rupture of membranes, multiple previous abdominal surgeries and previous surgery for rectovaginal fistula. POSTOPERATIVE DIAGNOSIS Intrauterine at 36 weeks, spontaneous rupture of membranes, multiple previous abdominal surgeries and previous surgery for rectovaginal fistula. PROCEDURE Primary lower segment transverse section via Pfannenstiel skin incision. SURGEON Dr. Anguiano and . ANESTHESIA Spinal; Dr.. Zuniga. FLUIDS 2100 cc crystalloids. ESTIMATED BLOOD LOSS 600 cc. URINE OUTPUT 200 cc; clear, yellow at the end of the procedure. FINDINGS On entry of the skin incision, a retention suture was noted at the midline of the fascia. Upon entry of the peritoneum, small bowel was noted just above the bladder. A live female was delivered vertex presentation, Apgars seven at one minute; eight at 5 minutes. weight was 7 pounds 13 ounces. PROCEDURE The patient was taken to the operating room where spinal anesthesia was found to be adequate. She was then prepped and draped in the normal sterile fashion in the dorsal supine position with a leftward tilt. Upon questioning, in the operating room, patient did say that she had seen Dr. Dent in the past for her Crohn's disease. A Pfannenstiel skin incision was made with a scalpel and carried down to the underlying layer of fascia. A retention suture was noted in the midline and this was excised. The fascia was nicked in the midline; the incision was extended laterally with curved Turpin scissors. Attention was turned to the inferior aspect of the incision which was grasped with Tosha clamps, elevated and the rectus muscles dissected off sharply. Attention was turned to the superior aspect of the incision, which was grasped with Tosha clamps, elevated and the rectus muscles dissected off sharply. The rectus muscles were in midline. The peritoneum was identified, grasped between two Sofie clamps and very carefully was dissected using Metzenbaum scissors. Almost immediately upon attempt to enter the peritoneum, small bowel was noted adherent to the peritoneum just above the bladder. This was carefully avoided. It was pink and noted to be viable. A window in the peritoneum was created above this area and it was gently extended superiorly and inferiorly with good visualization of the bladder and that portion of bowel. The bowel on the lower aspect was protected with a moist laparotomy sponge. A bladder blade was very gently placed to retract that area. The bladder flap was created sharply using Metzenbaum scissors. The lower uterine segment was incised in a transverse fashion with a scalpel. The incision was extended laterally with bandage scissors; clear fluid was noted. The vacuum was used to delivered the vertex. The shoulders were delivered atraumatically. The oral and nasopharynx were bulb suctioned with a syringe. The cord was clamped x2 and cut after waiting 45 seconds. The was handed off to awaiting nurse. Placenta was delivered manually; sent to pathology. The uterus was cleared of all clots and debris. The uterine incision was repaired in two layers with one Vicryl. Hemostasis was noted. There was one area to the left of the midline and that was slightly bleeding so Arixtra was applied The fascia was reapproximated in a running fashion with 0 Vicryl. The skin was irrigated copiously with saline. Three interrupted sutures of 3-0 chromic were placed in the subcutaneous tissue to reapproximate the area. The skin was closed with mallory. A pressure dressing was applied. The sponge, lap, needle and instrument counts were correct. The patient was transferred to recovery room in stable condition. Dr. Dent was consulted intraoperatively but stated if the bowel was pink and viable looking, to leave it alone and she will follow-up as an outpatient. MD ADAMARIS Hernandez/CATHI /1:36 PM /2:40 PM
[2017-08-10] MEDS ORDERED: fentaNYL CITRATE 250 MCG/5 ML AMP ONE (15:45)
[2017-08-10] MEDS ORDERED: diphenhydrAMINE HCL 50 MG/ML VIAL IV PUSH PRN ×2 (16:45→18:00)
[2017-08-10] MEDS ORDERED: NALOXONE HCL 0.4 MG/ML AMP IV PUSH PRN ×2 (16:45→18:00)
[2017-08-10] MEDS ORDERED: HYDROmorphone HCL PCA 6 MG/30 ML IV SCH (16:45)
[2017-08-10] MEDS: MORPHINE SULFATE 30 MG/30 ML PCA IV SCH (18:36)
--- NOTE | 2017-08-10 20:10 | MP ---
cc: TARA MICHAELS DATE OF SURGERY: 08/10/2017 PREOPERATIVE DIAGNOSIS: Postoperative bleeding from incision. POSTOPERATIVE DIAGNOSIS: Postoperative bleeding from incision. PROCEDURE Re-exploration of Pfannenstiel skin incision. SURGEON Dr. Michaels ANESTHESIA General endotracheal anesthesia, Dr. Blackman. FLUIDS: 600 cc crystalloid ESTIMATED BLOOD LOSS Minimal FINDINGS Bleeding was noted in the subcutaneous tissues of the Pfannenstiel skin incision, fascia was intact. DESCRIPTION OF PROCEDURE: The patient was taken to the operating room where general anesthesia was found to be adequate. She was prepped and draped in the normal sterile fashion in the dorsal supine position. The mallory were removed from the Pfannenstiel skin incision. The subcutaneous interrupted sutures were removed. Irrigation was performed of the subcutaneous tissue. Clot formation was noted in the subcutaneous tissue on the right side of the incision. The wound was irrigated and dried. Cauterization was performed with the Bovie. Several interrupted sutures of 3-0 chromic were placed around the vessels that were noted to be bleeding. Pressure was placed on the fascial incision to ensure that no bleeding was seeping out from underneath. The fascia was left intact. Subcutaneous closure was then performed in an interrupted fashion with 3-0 chromic. The skin incision was closed with mallory. Pressure dressing was applied. The sponge, lap, needle and instrument counts were correct. The patient was transferred to the Recovery Room in stable condition. MD ADAMARIS Hernandez/DANG /7:03 PM /7:45 PM
[2017-08-10] MEDS: INSULIN NovoLIN REGULAR SUPPLEMENTAL SCALE SQ SCH (21:00)
[2017-08-10] MEDS: LACTATED RINGER'S 1000 ML INJ 1,000 ML IV SCH (21:30)
[2017-08-10] MEDS: METHYLDOPA 500 MG TAB PO SCH (21:43)
[2017-08-10] MEDS: CLINDAMYCIN INJ 600 MG in SODIUM CHLORIDE 0.9% INJ 100 ML IV SCH (21:44)
[2017-08-10] MEDS ORDERED: PCA - TOTAL MG DILAUDID DELIVERED PER SHIFT OTHER SCH (22:00)
[2017-08-10] MEDS ORDERED: OXYTOCIN 30 UNITS-500ML PREMIX 500 ML IV PRN (23:45)
[2017-08-11 01:00] VITALS: BP 153/89; PULSE 101; RESP 16; TEMP 99.4
[2017-08-11] MEDS: CLINDAMYCIN INJ 600 MG in SODIUM CHLORIDE 0.9% INJ 100 ML IV SCH (04:58)
[2017-08-11 05:00] VITALS: BP 141/85; PULSE 98; RESP 16; TEMP 99; O2SAT 94
[2017-08-11 05:55] LABS: AUTOMATED NEUTROPHIL # 5.1 TH/MM3 (1.8-7.7); BASOPHIL % 0.3 % (0.0-2.0); EOSINOPHIL % 0.4 % (0.0-4.0); HEMATOCRIT 26.2 % (35.0-46.0); HEMOGLOBIN 8.9 GM/DL (11.6-15.3); LYMPH % 18.5 % (9.0-44.0); LYMPHOCYTE # 1.3 TH/MM3 (1.0-4.8); MEAN CELL VOLUME 86.1 FL (80.0-100.0); MEAN CORPUSCULAR HEMOGLOBIN 29.3 PG (27.0-34.0); MEAN CORPUSCULAR HGB CONC 34.1 % (32.0-36.0); MEAN PLATELET VOLUME 8.2 FL (7.0-11.0); MONO % 7.6 % (0.0-8.0); MONOCYTE # 0.5 TH/MM3 (0-0.9); NEUT % 73.2 % (16.0-70.0); PLATELET COUNT 176 TH/MM3 (150-450); RED BLOOD COUNT 3.04 MIL/MM3 (4.00-5.30); RED CELL DISTRIBUTION WIDTH 16.6 % (11.6-17.2)
[2017-08-11] MEDS: PCA - TOTAL MG MORPHINE DELIVERED PER SHIFT SCH (06:00)
[2017-08-11] MEDS: MORPHINE SULFATE 30 MG/30 ML PCA IV SCH (07:46)
[2017-08-11] MEDS: LACTATED RINGER'S 1000 ML INJ 1,000 ML IV SCH (07:48)
[2017-08-11 08:00] VITALS: BP 141/88; PULSE 112; RESP 20; TEMP 98.1
[2017-08-11] MEDS: METHYLDOPA 500 MG TAB PO SCH ×2 (09:17→22:48)
[2017-08-11] MEDS: NIFEdipine 30 MG SUSTAINED RELEASE TAB PO SCH (09:17)
--- NOTE | 2017-08-11 10:02 | HHI.OB ---
Subjective Post Operative Day: 1 Objective Vitals/I&O Vital Signs Date Time Temp Pulse Resp B/P (MAP) Pulse Ox O2 Delivery O2 Flow Rate FiO2 08/11/17 08:00 98.1 08/11/17 08:00 112 20 141/88 (105) 08/11/17 07:46 16 08/11/17 05:00 99.0 98 16 141/85 (103) 94 08/11/17 01:00 99.4 101 16 153/89 (110) 08/10/17 19:43 98.9 131 17 160/85 (110) 94 08/10/17 18:36 18 08/10/17 17:52 114 18 115/64 (81) 96 08/10/17 17:40 110/60 (77) 08/10/17 17:40 121 18 97 08/10/17 17:25 121/64 (83) 08/10/17 17:25 98.7 123 18 99 08/10/17 17:10 124 18 126/74 (91) 99 08/10/17 16:47 135 18 120/74 (89) 98 08/10/17 16:47 100.2 08/10/17 16:10 110 20 95 08/10/17 16:10 140/78 (98) 08/10/17 15:55 111 20 120/65 (83) 94 08/10/17 15:40 118/62 (80) 08/10/17 15:37 109 18 96 08/10/17 15:25 119 18 141/74 (96) 97 08/10/17 15:10 114 18 140/76 (97) 94 08/10/17 14:55 111 16 110/56 (74) 95 08/10/17 14:39 113 18 129/66 (87) 94 08/10/17 14:22 111 116/68 (84) 08/10/17 14:22 18 97 08/10/17 14:02 114 18 121/68 (85) 96 08/10/17 13:50 114 18 124/59 (80) 08/10/17 13:50 97.1 98 08/10/17 10:06 120 159/92 (114) Result Diagram: 08/11/17 0515 08/09/17 2208 Objective Remarks GENERAL: Well-nourished, well-developed patient. CARDIOVASCULAR: Regular rate and rhythm without murmurs, gallops, or rubs. RESPIRATORY: Breath sounds equal bilaterally. No accessory muscle use. ABDOMEN/GI: Abdomen soft, non-tender, bowel sounds present. Incision: pressure dressing, Clean, dry and intact. Fundus: Firm, non-tender at umbilicus. GENITOURINARY: Light to moderate bleeding. EXTREMITIES: No cyanosis or edema, non-tender, without signs of DVT. Medications and IVs Current Medications Medications (Trade) Dose Ordered Sig/Yehuda Route Start Time Stop Time Status Last Admin Lactated Ringer's 1,000 ml @ 100 mls/hr Q10H IV 08/10/17 18:41 08/11/17 14:40 08/11/17 07:48 Oxytocin 500 ml @ 100 mls/hr UNSCH X1 PRN IV 08/10/17 23:45 08/11/17 23:44 (NS Flush) 2 ml BID IV FLUSH 08/10/17 21:00 (NS Flush) 2 ml UNSCH PRN IV FLUSH 08/10/17 13:45 (Mylicon Chew) 80 mg QID PRN PO 08/10/17 13:45 (Tylenol) 650 mg Q6H PRN PO 08/10/17 13:45 (Jyothi-Colace) 2 tab Q12H PRN PO 08/10/17 13:45 (Ambien) 5 mg HS PRN PO 08/10/17 13:45 (M-M-R Ii Inj) 0.5 ml ONCE ONCE SQ 08/11/17 16:00 08/11/17 16:01 (Boostrix Inj) 0.5 ml ONCE ONCE IM 08/11/17 16:00 08/11/17 16:01 (Zofran Inj) 4 mg Q6H PRN IV PUSH 08/10/17 13:45 (Tyler 7.5-325 Mg) 1 tab Q6H PRN PO 08/10/17 13:45 (Aldomet) 1,000 mg Q12HR PO 08/10/17 21:00 08/11/17 09:17 (Procardia Xl) 30 mg DAILY PO 08/11/17 09:00 08/11/17 09:17 (D50w (Vial) Inj) 50 ml UNSCH PRN IV PUSH 08/10/17 13:45 (Glucagon Inj) 1 mg UNSCH PRN OTHER 08/10/17 13:45 (NovoLIN R SUPPLEMENTAL SCALE) 1 ACHS SLIDING SCALE SQ 08/10/17 17:00 Miscellaneous Information NO SYSTEMIC NARCOTICS TO BE GIVEN FO... UNSCH PRN .XX 08/10/17 12:25 08/11/17 12:24 (Narcan Inj) 0.4 mg UNSCH PRN IV PUSH 08/10/17 15:00 08/11/17 14:59 (Benadryl Inj) 25 mg Q6H PRN IV PUSH 08/10/17 15:00 08/11/17 14:59 (Benadryl) 50 mg Q6H PRN PO 08/10/17 15:00 08/11/17 14:59 Miscellaneous Information ALL NURSING DEPARTMENTS UNSCH PRN .XX 08/10/17 15:00 08/11/17 14:59 (Narcan Inj) 0.4 mg UNSCH PRN IV PUSH 08/10/17 18:00 (Benadryl Inj) 25 mg Q6H PRN IV PUSH 08/10/17 18:00 (Morphine 1 Mg/ ml BOTTOM SANDER) 30 mg UNSCH IV 08/10/17 18:00 08/11/17 07:46 BOTTOM SANDER Dosage Infused (Pha) 1 Q8HR .XX 08/10/17 18:00 Assessment/Plan Problem List: (1) Anemia ICD Codes: D64.9 - Anemia, unspecified (2) S/P primary low transverse ICD Codes: Z98.891 - History of uterine scar from previous surgery (3) Diabetes mellitus affecting in third trimester ICD Codes: O24.913 - Unspecified diabetes mellitus in , third trimester Status: Acute (4) Chronic hypertension affecting ICD Codes: O10.919 - Unspecified pre-existing hypertension complicating , unspecified trimester Status: Acute (5) Crohn disease ICD Codes: K50.90 - Crohn's disease, unspecified, without complications Status: Acute Assessment and Plan POD # 1 pt doing well pain well managed with 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
[2017-08-11 13:55] VITALS: BP 139/79; PULSE 114; RESP 20; TEMP 97.9
[2017-08-11] MEDS ORDERED: ENOXAPARIN SODIUM 40 MG/0.4 ML SYRINGE SQ SCH (15:00)
[2017-08-11] MEDS ORDERED: MEASLES, MUMPS, RUBELLA VACCINE 0.5 ML VIAL SQ ONE (16:00)
[2017-08-11] MEDS ORDERED: DIPHTH/TETANUS/ACEL PERTUSSIS (BOOSTER) 0.5 ML VIAL/PFS IM ONE (16:00)
[2017-08-11 17:00] VITALS: BP 146/88; PULSE 101; RESP 17; TEMP 98.2
[2017-08-11] MEDS: HYDROmorphone HCL 2 MG TAB PO PRN (19:49)
[2017-08-11 20:00] VITALS: BP 148/92; PULSE 99; RESP 20; TEMP 97.8; O2SAT 96
[2017-08-11] MEDS: INSULIN NovoLIN REGULAR SUPPLEMENTAL SCALE SQ SCH (21:00)
[2017-08-12] VITALS (8 sets, daily range): BP systolic 146–175; BP diastolic 83–93; PULSE 100–112; RESP 18–20; TEMP 98.1–98.2; O2SAT 96–99
[2017-08-12] MEDS: HYDROmorphone HCL 2 MG TAB PO PRN ×3 (00:18→09:54)
[2017-08-12] MEDS: INSULIN NovoLIN REGULAR SUPPLEMENTAL SCALE SQ SCH ×4 (01:30→19:17)
[2017-08-12] MEDS: PCA - TOTAL MG MORPHINE DELIVERED PER SHIFT SCH (08:10)
[2017-08-12] MEDS: SODIUM CHLORIDE 0.9% FLUSH 10 ML FLUSH IV FLUSH SCH (09:00)
[2017-08-12] MEDS: METHYLDOPA 500 MG TAB PO SCH ×2 (09:10→21:19)
[2017-08-12] MEDS: NIFEdipine 30 MG SUSTAINED RELEASE TAB PO SCH (09:10)
[2017-08-12] MEDS: IRON SUCROSE INJ 100 MG in SODIUM CHLORIDE 0.9% INJ 100 ML IV SCH (09:53)
[2017-08-12] MEDS ORDERED: LABETALOL HCL 200 MG TAB PO ONE (11:00)
[2017-08-12] MEDS: ACETAMINOPHEN 325 MG TAB PO PRN ×2 (13:22→20:05)
--- NOTE | 2017-08-12 14:03 | HHI.OB ---
Subjective Post Operative Day: 2 Objective Vitals/I&O Vital Signs Date Time Temp Pulse Resp B/P (MAP) Pulse Ox O2 Delivery O2 Flow Rate FiO2 08/12/17 12:45 161/89 (113) 08/12/17 10:14 175/93 (120) 08/12/17 10:14 169/83 (111) 08/12/17 10:10 108 08/12/17 08:10 18 08/12/17 08:00 112 175/93 (120) 08/12/17 08:00 20 08/12/17 08:00 98.1 08/12/17 05:00 98.2 105 18 147/91 (109) 99 08/12/17 00:00 173/91 (118) 08/12/17 00:00 98.2 103 18 97 08/11/17 20:00 97.8 99 20 148/92 (110) 96 08/11/17 17:00 98.2 101 17 08/11/17 17:00 146/88 (107) Result Diagram: 08/11/17 0515 08/09/172228 Objective Remarks GENERAL: Well-nourished, well-developed patient. CARDIOVASCULAR: Regular rate and rhythm without murmurs, gallops, or rubs. RESPIRATORY: Breath sounds equal bilaterally. No accessory muscle use. ABDOMEN/GI: Abdomen soft, non-tender, bowel sounds present. Incision: pressure dressing, Clean, dry and intact. Fundus: Firm, non-tender at umbilicus. GENITOURINARY: Light to moderate bleeding. EXTREMITIES: No cyanosis , non-tender, without signs of DVT, edema to bilateral feet Medications and IVs Current Medications Medications (Trade) Dose Ordered Sig/Yehuda Route Start Time Stop Time Status Last Admin (NS Flush) 2 ml BID IV FLUSH 08/10/17 21:00 08/12/17 09:00 (NS Flush) 2 ml UNSCH PRN IV FLUSH 08/10/17 13:45 (Mylicon Chew) 80 mg QID PRN PO 08/10/17 13:45 (Tylenol) 650 mg Q6H PRN PO 08/10/17 13:45 08/12/17 13:22 (Jyothi-Colace) 2 tab Q12H PRN PO 08/10/17 13:45 (Ambien) 5 mg HS PRN PO 08/10/17 13:45 (Zofran Inj) 4 mg Q6H PRN IV PUSH 08/10/17 13:45 (Aldomet) 1,000 mg Q12HR PO 08/10/17 21:00 08/12/17 09:10 (D50w (Vial) Inj) 50 ml UNSCH PRN IV PUSH 08/10/17 13:45 (Glucagon Inj) 1 mg UNSCH PRN OTHER 08/10/17 13:45 (NovoLIN R SUPPLEMENTAL SCALE) 1 ACHS SLIDING SCALE SQ 08/10/17 17:00 (Narcan Inj) 0.4 mg UNSCH PRN IV PUSH 08/10/17 18:00 (Benadryl Inj) 25 mg Q6H PRN IV PUSH 08/10/17 18:00 (Morphine 1 Mg/ ml HOUSEHOLD COOK) 30 mg UNSCH IV 08/10/17 18:00 08/11/17 07:46 HOUSEHOLD COOK Dosage Infused (Pha) 1 Q8HR .XX 08/10/17 18:00 08/12/17 08:10 (Dilaudid) 2 mg Q4H PRN PO 08/11/17 15:30 08/12/17 09:54 (Dilaudid) 4 mg Q4H PRN PO 08/11/17 15:30 Iron Sucrose 100 mg/Sodium Chloride 105 ml @ 105 mls/hr DAILY IV 08/12/17 09:00 08/14/17 09:59 08/12/17 09:53 (Procardia Xl) 60 mg DAILY PO 08/13/17 09:00 Assessment/Plan Problem List: (1) Anemia ICD Codes: D64.9 - Anemia, unspecified Qualifiers: (2) S/P primary low transverse ICD Codes: Z98.891 - History of uterine scar from previous surgery (3) Diabetes mellitus affecting in third trimester ICD Codes: O24.913 - Unspecified diabetes mellitus in , third trimester Status: Acute (4) Chronic hypertension affecting ICD Codes: O10.919 - Unspecified pre-existing hypertension complicating , unspecified trimester Status: Acute (5) Crohn disease ICD Codes: K50.90 - Crohn's disease, unspecified, without complications Status: Acute Assessment and Plan POD # 2 pt doing well bp elevated will increase procardia sugars are stable pain well managed with oral medication pressure dressing CDI,, will remove tomorrow king out, encourage ambulation continue Venofer bonding with infant routine care Discharge Planning consider dc in 1 days Ruby Pak Aug 12, 2017 14:03
[2017-08-12] MEDS: HYDROmorphone HCL 4 MG TAB PO PRN ×3 (14:14→23:00)
[2017-08-12] MEDS: DOCUSATE SODIUM 50 MG/SENNA 8.6 MG TAB PO PRN (14:15)
[2017-08-13] VITALS (7 sets, daily range): BP systolic 145–163; BP diastolic 85–103; PULSE 106–114; RESP 16–20; TEMP 98.1–98.7; O2SAT 97–99
[2017-08-13] MEDS: ACETAMINOPHEN 325 MG TAB PO PRN ×3 (02:09→23:20)
[2017-08-13] MEDS: HYDROmorphone HCL 4 MG TAB PO PRN ×2 (05:35→15:57)
[2017-08-13] MEDS ORDERED: IRON SUCROSE 100 MG/5 ML VIAL IV PUSH ONE (08:15)
[2017-08-13] MEDS: METHYLDOPA 500 MG TAB PO SCH ×2 (08:49→20:45)
[2017-08-13] MEDS: SODIUM CHLORIDE 0.9% FLUSH 10 ML FLUSH IV FLUSH SCH (08:50)
[2017-08-13] MEDS: IRON SUCROSE INJ 100 MG in SODIUM CHLORIDE 0.9% INJ 100 ML IV SCH (08:50)
[2017-08-13] MEDS ORDERED: NIFEdipine 60 MG SUSTAINED RELEASE TAB PO SCH (09:00)
[2017-08-13] MEDS: INSULIN NovoLIN REGULAR SUPPLEMENTAL SCALE SQ SCH ×4 (09:35→23:27)
--- NOTE | 2017-08-13 10:26 | HHI.OB ---
Subjective Post Operative Day: 3 Objective Vitals/I&O Vital Signs Date Time Temp Pulse Resp B/P (MAP) Pulse Ox O2 Delivery O2 Flow Rate FiO2 08/13/17 08:00 98.1 16 162/94 (116) 98 08/13/17 08:00 109 08/12/17 19:46 98.1 100 18 146/84 (104) 96 08/12/17 17:00 98.2 100 20 150/85 (106) 08/12/17 12:45 161/89 (113) Result Diagram: 08/11/17 0515 08/09/172228 Objective Remarks GENERAL: Well-nourished, well-developed patient. CARDIOVASCULAR: Regular rate and rhythm without murmurs, gallops, or rubs. RESPIRATORY: Breath sounds equal bilaterally. No accessory muscle use. ABDOMEN/GI: Abdomen soft, non-tender, bowel sounds present. Incision: pressure dressing, Clean, dry and intact. Fundus: Firm, non-tender at umbilicus. GENITOURINARY: Light to moderate bleeding. EXTREMITIES: No cyanosis , non-tender, without signs of DVT, edema to bilateral feet Medications and IVs Current Medications Medications (Trade) Dose Ordered Sig/Yehuda Route Start Time Stop Time Status Last Admin (NS Flush) 2 ml BID IV FLUSH 08/10/17 21:00 08/13/17 08:50 (NS Flush) 2 ml UNSCH PRN IV FLUSH 08/10/17 13:45 (Mylicon Chew) 80 mg QID PRN PO 08/10/17 13:45 (Tylenol) 650 mg Q6H PRN PO 08/10/17 13:45 08/13/17 02:09 (Jyothi-Colace) 2 tab Q12H PRN PO 08/10/17 13:45 08/12/17 14:15 (Ambien) 5 mg HS PRN PO 08/10/17 13:45 (Zofran Inj) 4 mg Q6H PRN IV PUSH 08/10/17 13:45 (Aldomet) 1,000 mg Q12HR PO 08/10/17 21:00 08/13/17 08:49 (D50w (Vial) Inj) 50 ml UNSCH PRN IV PUSH 08/10/17 13:45 (Glucagon Inj) 1 mg UNSCH PRN OTHER 08/10/17 13:45 (NovoLIN R SUPPLEMENTAL SCALE) 1 ACHS SLIDING SCALE SQ 08/10/17 17:00 (Narcan Inj) 0.4 mg UNSCH PRN IV PUSH 08/10/17 18:00 (Benadryl Inj) 25 mg Q6H PRN IV PUSH 08/10/17 18:00 (Morphine 1 Mg/ ml CLAIMS ADJUSTER SUPERVISOR) 30 mg UNSCH IV 08/10/17 18:00 08/11/17 07:46 CLAIMS ADJUSTER SUPERVISOR Dosage Infused (Pha) 1 Q8HR .XX 08/10/17 18:00 08/12/17 08:10 (Dilaudid) 2 mg Q4H PRN PO 08/11/17 15:30 08/12/17 09:54 (Dilaudid) 4 mg Q4H PRN PO 08/11/17 15:30 08/13/17 05:35 Iron Sucrose 100 mg/Sodium Chloride 105 ml @ 105 mls/hr DAILY IV 08/12/17 09:00 08/14/17 09:59 08/13/17 08:50 (Procardia Xl) 60 mg DAILY PO 08/13/17 09:00 08/13/17 08:49 Assessment/Plan Problem List: (1) Anemia ICD Codes: D64.9 - Anemia, unspecified Qualifiers: (2) S/P primary low transverse ICD Codes: Z98.891 - History of uterine scar from previous surgery (3) Diabetes mellitus affecting in third trimester ICD Codes: O24.913 - Unspecified diabetes mellitus in , third trimester Status: Acute (4) Chronic hypertension affecting ICD Codes: O10.919 - Unspecified pre-existing hypertension complicating , unspecified trimester Status: Acute (5) Crohn disease ICD Codes: K50.90 - Crohn's disease, unspecified, without complications Status: Acute Assessment and Plan POD # 3 pt doing well bp elevated at 162/94, RN will give procardia 60mg now and repeat bp sugars are stable pain well managed with oral medication pressure dressing CDI,, will remove today in shower and prob remove mallory tomorrow continue Venofer pumping breast and bottle feeding routine care Discharge Planning consider dc tomorrow Ruby Pak Aug 13, 2017 10:26
[2017-08-13] MEDS: HYDROmorphone HCL 2 MG TAB PO PRN (10:48)
[2017-08-13 11:22] LABS: AUTOMATED NEUTROPHIL # 5.1 TH/MM3 (1.8-7.7); BASOPHIL % 0.2 % (0.0-2.0); EOSINOPHIL # 0.2 TH/MM3 (0-0.4); EOSINOPHIL % 2.3 % (0.0-4.0); HEMOGLOBIN 9.5 GM/DL (11.6-15.3); LYMPH % 17.9 % (9.0-44.0); LYMPHOCYTE # 1.2 TH/MM3 (1.0-4.8); MEAN CELL VOLUME 86.2 FL (80.0-100.0); MEAN CORPUSCULAR HEMOGLOBIN 29.2 PG (27.0-34.0); MEAN CORPUSCULAR HGB CONC 33.8 % (32.0-36.0); MONO % 4.7 % (0.0-8.0); MONOCYTE # 0.3 TH/MM3 (0-0.9); NEUT % 74.9 % (16.0-70.0); PLATELET COUNT 235 TH/MM3 (150-450); RED BLOOD COUNT 3.24 MIL/MM3 (4.00-5.30); RED CELL DISTRIBUTION WIDTH 16.5 % (11.6-17.2); WHITE BLOOD COUNT 6.8 TH/MM3 (4.0-11.0)
[2017-08-13] MEDS ORDERED: NIFEdipine 30 MG SUSTAINED RELEASE TAB PO ONE (12:15)
[2017-08-13] MEDS: PCA - TOTAL MG MORPHINE DELIVERED PER SHIFT SCH (14:05)
[2017-08-13] MEDS: MUPIROCIN 2% OINT 22 GM TUBE TOPICAL SCH ×2 (17:06→22:00)
[2017-08-13] MEDS: DOCUSATE SODIUM 50 MG/SENNA 8.6 MG TAB PO PRN (20:45)
[2017-08-14] VITALS (9 sets, daily range): BP systolic 135–168; BP diastolic 79–96; PULSE 93–118; RESP 16–18; TEMP 97.7–98.4; O2SAT 92–98
[2017-08-14] MEDS: PCA - TOTAL MG MORPHINE DELIVERED PER SHIFT SCH ×4 (07:02→19:40)
[2017-08-14] MEDS: HYDROmorphone HCL 4 MG TAB PO PRN (07:33)
[2017-08-14] MEDS: MUPIROCIN 2% OINT 22 GM TUBE TOPICAL SCH ×3 (07:35→22:21)
[2017-08-14] MEDS: SODIUM CHLORIDE 0.9% FLUSH 10 ML FLUSH IV FLUSH SCH ×2 (08:03→19:38)
[2017-08-14] MEDS: METHYLDOPA 500 MG TAB PO SCH ×2 (08:04→22:20)
[2017-08-14] MEDS: INSULIN NovoLIN REGULAR SUPPLEMENTAL SCALE SQ SCH ×4 (08:08→22:26)
[2017-08-14] MEDS ORDERED: NIFEdipine 90 MG SUSTAINED RELEASE TAB PO SCH (09:00)
[2017-08-14] MEDS: IRON SUCROSE INJ 100 MG in SODIUM CHLORIDE 0.9% INJ 100 ML IV SCH (09:24)
[2017-08-14] MEDS: ACETAMINOPHEN 325 MG TAB PO PRN (11:35)
[2017-08-14] MEDS ORDERED: NIFEdipine 30 MG SUSTAINED RELEASE TAB PO ONE (12:45)
[2017-08-14] MEDS: HYDROmorphone HCL 2 MG TAB PO PRN ×2 (16:58→22:20)
[2017-08-14] MEDS ORDERED: LABETALOL HCL 300 MG TAB PO ONE (17:00)
--- NOTE | 2017-08-14 17:12 | HHI.OB ---
Subjective Post Operative Day: 3 Remarks Feeling good except the area where my skin riped off from the pressure bandage. Bleeding is fine Baby is doing well. Ready to go home. Objective Vitals/I&O Vital Signs Date Time Temp Pulse Resp B/P (MAP) Pulse Ox O2 Delivery O2 Flow Rate FiO2 08/14/17 15:00 168/94 (118) 08/14/17 13:00 98.1 114 18 98 08/14/17 08:00 98.1 95 16 164/94 (117) 97 08/14/17 04:00 97.8 98 08/14/17 04:00 105 18 139/85 (103) 08/14/17 00:48 157/96 (116) 08/14/17 00:00 98.4 118 18 161/91 (114) 92 08/13/17 20:00 98.7 114 20 99 08/13/17 20:00 152/85 (107) Result Diagram: 08/13/17 1019 08/09/179 Objective Remarks GENERAL: Well-nourished, well-developed patient. CARDIOVASCULAR: Regular rate and rhythm without murmurs, gallops, or rubs. RESPIRATORY: Breath sounds equal bilaterally. No accessory muscle use. ABDOMEN/GI: Abdomen soft, non-tender, bowel sounds present. Incision: pressure dressing, Clean, dry and intact. Fundus: Firm, non-tender at umbilicus. GENITOURINARY: Light to moderate bleeding. EXTREMITIES: No cyanosis , non-tender, without signs of DVT, edema to bilateral feet Medications and IVs Current Medications Medications (Trade) Dose Ordered Sig/Yehuda Route Start Time Stop Time Status Last Admin (NS Flush) 2 ml BID IV FLUSH 08/10/17 21:00 08/14/17 08:03 (NS Flush) 2 ml UNSCH PRN IV FLUSH 08/10/17 13:45 (Mylicon Chew) 80 mg QID PRN PO 08/10/17 13:45 (Tylenol) 650 mg Q6H PRN PO 08/10/17 13:45 08/14/17 11:35 (Jyothi-Colace) 2 tab Q12H PRN PO 08/10/17 13:45 08/13/17 20:45 (Ambien) 5 mg HS PRN PO 08/10/17 13:45 (Zofran Inj) 4 mg Q6H PRN IV PUSH 08/10/17 13:45 (Aldomet) 1,000 mg Q12HR PO 08/10/17 21:00 08/14/17 08:04 (D50w (Vial) Inj) 50 ml UNSCH PRN IV PUSH 08/10/17 13:45 (Glucagon Inj) 1 mg UNSCH PRN OTHER 08/10/17 13:45 (NovoLIN R SUPPLEMENTAL SCALE) 1 ACHS SLIDING SCALE SQ 08/10/17 17:00 08/14/17 13:10 (Narcan Inj) 0.4 mg UNSCH PRN IV PUSH 08/10/17 18:00 (Benadryl Inj) 25 mg Q6H PRN IV PUSH 08/10/17 18:00 (Morphine 1 Mg/ ml ORGANIC SECTION TECHNICAL LEAD) 30 mg UNSCH IV 08/10/17 18:00 08/11/17 07:46 ORGANIC SECTION TECHNICAL LEAD Dosage Infused (Pha) 1 Q8HR .XX 08/10/17 18:00 08/12/17 08:10 (Dilaudid) 2 mg Q4H PRN PO 08/11/17 15:30 08/14/17 16:58 (Dilaudid) 4 mg Q4H PRN PO 08/11/17 15:30 08/14/17 07:33 (Procardia Xl) 90 mg DAILY PO 08/14/17 09:00 08/14/17 08:04 (Bactroban 2% Oint) 1 applic Q8HR TOPICAL 08/13/17 16:15 08/14/17 14:59 Assessment/Plan Problem List: (1) Anemia ICD Codes: D64.9 - Anemia, unspecified Qualifiers: (2) S/P primary low transverse ICD Codes: Z98.891 - History of uterine scar from previous surgery (3) Diabetes mellitus affecting in third trimester ICD Codes: O24.913 - Unspecified diabetes mellitus in , third trimester Status: Acute (4) Chronic hypertension affecting ICD Codes: O10.919 - Unspecified pre-existing hypertension complicating , unspecified trimester Status: Acute (5) Crohn disease ICD Codes: K50.90 - Crohn's disease, unspecified, without complications Status: Acute Assessment and Plan POD # 4 Uncontrolled BPs she was on Norvasc before and the procardia does not seem to be working well Will d/c procardia give 5mg of Norvasc now and 10 mg in the am Not ready to go home as the BP is not controlled. Discharge Planning consider dc tomorrow Narciso Salas MD Aug 14, 2017 17:11
[2017-08-14] MEDS ORDERED: amLODIPine BESYLATE 5 MG TAB PO ONE (17:15)
[2017-08-15 03:00] VITALS: BP 156/85; PULSE 94; RESP 16; RESP 20; TEMP 98
[2017-08-15] MEDS: MUPIROCIN 2% OINT 22 GM TUBE TOPICAL SCH (03:16)
[2017-08-15] MEDS: ACETAMINOPHEN 325 MG TAB PO PRN (04:11)
[2017-08-15 08:05] VITALS: BP 155/80
[2017-08-15] MEDS: METHYLDOPA 500 MG TAB PO SCH (08:57)
[2017-08-15] MEDS: SODIUM CHLORIDE 0.9% FLUSH 10 ML FLUSH IV FLUSH SCH (08:59)
[2017-08-15] MEDS: INSULIN NovoLIN REGULAR SUPPLEMENTAL SCALE SQ SCH ×2 (08:59→12:51)
[2017-08-15 12:00] VITALS: BP 150/92; PULSE 96; RESP 20; TEMP 96.5; O2SAT 0
[2017-08-15] MEDS ORDERED: AMLO10 PO (13:26)
[2017-08-15] MEDS ORDERED: METH500T PO (13:26)
[2017-08-15] MEDS ORDERED: DILA2TAB4 PO (13:26)
== END 2017-08-15 13:56 | disposition home or self-care (01) | DRG 765 ==
LOC: HOBED 20:17 → H2EA 21:51 → H1EA 08-10 15:56
PROVIDERS: ADMIT Obstetrics & Gynecology; ATTEND Obstetrics & Gynecology
PROC: 10D00Z1 Extraction of Products of Conception, Low, Open Approach (ICD-10-PCS; principal; 2017-08-10)
PROC: 0W3F0ZZ Control Bleeding in Abdominal Wall, Open Approach (ICD-10-PCS; 2017-08-10)
DX: O10.92 Unspecified pre-existing hypertension complicating childbirth (principal); O24.12 Pre-existing type 2 diabetes mellitus, in childbirth; K50.90 Crohn's disease, unspecified, without complications; O99.354 Diseases of the nervous system complicating childbirth; L76.22 Postprocedural hemorrhage of skin and subcutaneous tissue following other procedure; Z37.0 Single live birth; E11.9 Type 2 diabetes mellitus without complications; O99.344 Other mental disorders complicating childbirth; F41.9 Anxiety disorder, unspecified; O42.913 Preterm premature rupture of membranes, unspecified as to length of time between rupture and onset of labor, third trimester; Z3A.36 36 weeks gestation of pregnancy; O99.62 Diseases of the digestive system complicating childbirth; Z79.4 Long term (current) use of insulin; G43.909 Migraine, unspecified, not intractable, without status migrainosus; O99.02 Anemia complicating childbirth
CPT/HCPCS: 59025; 80053; 80076; 80307; 81001; 82948; 85025; 86850; 86900; 86901; 88307; 90715; 94150; J0131; J0330; J0690; J1100; J1756; J2250; J2270; J2274; J2370; J2405; J2550; J2590; J3010; J7120